=== PATIENT | female | born 1995 | race Caucasian/White ===

== ENCOUNTER 2019-02-27 08:06 | Outpatient (CLI) | payer BC ==
[~2019-02-27] VITALS: Ht 167.6 cm; Wt 61.8 kg
[2019-02-27] MEDS ORDERED: SPRINTEC 35 MCG1 TAB PO (08:47)
[2019-02-27 08:55] VITALS: BP 120/80; PULSE 93; TEMP 99.1
--- NOTE | 2019-02-27 10:00 | NUR ---
Pt returned to [facility] per w/c from [facility]. Pt garret well. Dr. Hughes will see pt before discharge.
[2019-02-27 10:07] VITALS: BP 104/75; PULSE 91
--- NOTE | 2019-02-27 10:35 | NUR ---
Pt has ambulated and garret PO intake s n/v. PIV removed from L AC with catheter intact.
--- NOTE | 2019-02-27 10:40 | NUR ---
Pt discharged per w/c by nurse.
== END 2019-02-27 11:42 | disposition home or self-care (01) ==
LOC: COL.CAR 08:06
DX: R55 Syncope and collapse (principal); Z80.8 Family history of malignant neoplasm of other organs or systems